=== PATIENT | male | born 1970 | race Caucasian/White ===

== ENCOUNTER → 2017-06-06 | Outpatient (CLI) | payer OTHER | LOC: M EKG 16:56 | DX: Z01.818 Encounter for other preprocedural examination (principal); Z87.09 Personal history of other diseases of the respiratory system | CPT/HCPCS: 93005 ==

== ENCOUNTER 2017-06-18 08:51 | Day surgery (SDC) | payer OTHER ==
[2017-06-18] MEDS: LR 1,000 ML IV (09:45)
[2017-06-18] MEDS ORDERED: PROPOFOL 200 MG/20 ML VIAL As Ordered (10:05)
[2017-06-18] MEDS ORDERED: fentaNYL 250 MCG/5 ML INJECTION (J3010) As Ordered (10:06)
[2017-06-18] MEDS ORDERED: ROCURONIUM BROMIDE 50 MG/5 ML VIAL As Ordered (10:06)
[2017-06-18] MEDS ORDERED: MIDAZOLAM INJ 2 MG/2 ML VIAL (J2250) As Ordered (10:06)
[2017-06-18] MEDS ORDERED: LIDOCAINE 2% INJ 100 MG/5 ML SDV (FOR ANES.) As Ordered (10:06)
[2017-06-18] MEDS ORDERED: dexameTHASONE 4 MG/ML 1ML VIAL (J1100) As Ordered (11:33)
[2017-06-18] MEDS ORDERED: GLYCOPYRROLATE INJ 0.2 MG/ML 2 ML VIAL As Ordered ×2 (12:01)
[2017-06-18] MEDS ORDERED: METOCLOPRAMIDE INJ 10MG/2ML VIAL (J2765) As Ordered (12:01)
[2017-06-18] MEDS ORDERED: KETOROLAC 60 MG/2 ML VIAL (J1885) As Ordered (12:01)
[2017-06-18] MEDS ORDERED: ONDANSETRON 4MG/2ML VIAL (J2405) As Ordered (12:01)
[2017-06-18] MEDS: CIPRODEX OTIC SUSP 7.5ML As Ordered (12:18)
[2017-06-18] MEDS: LIDOCAINE W/EPINEPHRINE 1% 20ML VIAL As Ordered (12:42)
[2017-06-18] MEDS ORDERED: fentaNYL 100 MCG/2 ML INJECTION (J3010) IV (13:00)
[2017-06-18] MEDS ORDERED: LR 1,000 ML IV (13:00)
[2017-06-18] MEDS: PERCOCET 5MG/325MG TAB PO (13:09)
[2017-06-18] MEDS: ONDANSETRON 4MG/2ML VIAL (J2405) IV (13:09)
== END 2017-06-18 14:40 | disposition home or self-care (01) ==
LOC: M SDC 14:40
DX: H70.12 Chronic mastoiditis, left ear (principal); K21.9 Gastro-esophageal reflux disease without esophagitis; E78.00 Pure hypercholesterolemia, unspecified; G47.33 Obstructive sleep apnea (adult) (pediatric); Z79.899 Other long term (current) drug therapy
CPT/HCPCS: 69222

== ENCOUNTER → 2022-05-19 | Outpatient (CLI) | payer OTHER ==
[~2022-05-19] MED LIST: ATOR80TA59 PO; CHOL100013 PO; DRIS50003 PO; LOPI600T PO; METO1TAB7 PO; OMEP1CAP73 PO
== END ==
LOC: M LABSMTC 11:21
PROVIDERS: ATTEND Anesthesiology
DX: Z01.812 Encounter for preprocedural laboratory examination (principal); Z20.822 Contact with and (suspected) exposure to COVID-19

== ENCOUNTER 2022-05-22 10:40 | Day surgery (SDC) | payer OTHER ==
[~2022-05-22] VITALS: Ht 182.9 cm; Wt 108.8 kg
[~2022-05-22 10:40] MED LIST changes: +NS 1,000 ML IV ONE
[2022-05-22] MEDS ORDERED: propofoL 200 MG/20 ML VIAL As Ordered ONE (10:45)
[2022-05-22] MEDS ORDERED: LIDOCAINE 2% 100MG/5ML SDV (FOR ANES.) As Ordered ONE (10:45)
[2022-05-22] MEDS ORDERED: fentaNYL 100 MCG/2 ML INJECTION As Ordered ONE (11:59)
[2022-05-22 12:50] VITALS: BP 112/63
== END 2022-05-22 12:57 | disposition home or self-care (01) ==
LOC: M OPP 10:40
PROVIDERS: ATTEND Internal Medicine Gastroenterology
DX: Z12.11 Encounter for screening for malignant neoplasm of colon (principal); Z80.0 Family history of malignant neoplasm of digestive organs; K64.0 First degree hemorrhoids; K22.89 Other specified disease of esophagus; K44.9 Diaphragmatic hernia without obstruction or gangrene; K22.70 Barrett's esophagus without dysplasia; Z79.02 Long term (current) use of antithrombotics/antiplatelets; Z79.52 Long term (current) use of systemic steroids; Z79.899 Other long term (current) drug therapy; Z99.89 Dependence on other enabling machines and devices; G47.30 Sleep apnea, unspecified; I10 Essential (primary) hypertension; E78.00 Pure hypercholesterolemia, unspecified; L20.9 Atopic dermatitis, unspecified
CPT/HCPCS: 43239; 45378; 88305; J3010